=== PATIENT | female | born 1980 | race Caucasian/White ===

== ENCOUNTER 2021-03-20 01:53 | Outpatient (CLI) | payer BC, SELFPAY ==
--- NOTE | 2021-03-20 07:15 | DI.MAMMO_ITS ---
Exam(s) MAMMO SCREENING EXAM: MAMMO SCREENING CLINICAL HISTORY: screening,z12.39 TECHNIQUE: Mammograms were interpreted according to the usual protocol including computer analysis w [employer] CAD system, tomosynthesis and C-view imaging. COMPARISON: FINDINGS: The breasts are of moderate density with fairly symmetrical distribution of fibroglandular tissue. N o dominant mass or clumped microcalcification is identified in either breast. Today's examination is a baseline examination. IMPRESSION: No specific evidence of malignancy at this time. Routine screening examinations are suggested at yea rly intervals due to the family history of breast carcinoma. BI-RADS Category 1 - Negative Breast Density - Category B - Scattered areas of fibroglandular density
== END 2021-03-20 02:13 ==
PROVIDERS: PCP Nurse Practitioner Family; Visit Provider Nurse Practitioner Family
DX: Z12.31 Encounter for screening mammogram for malignant neoplasm of breast (principal); Z80.3 Family history of malignant neoplasm of breast
CPT/HCPCS: 77063; 77067

== ENCOUNTER 2021-03-20 03:29 | Outpatient (CLI) | payer BC, SELFPAY ==
[2021-03-20 09:30] LABS: Hemoglobin A1C 5.3 % (<5.7)
[2021-03-20 10:24] LABS: Anion Gap 10.5 mmol/L (3-11); BUN 13 mg/dL (7-18); CO2 27.5 mmol/L (21.0-32.0); CREATININE 0.6 mg/dL (0.55-1.02); Calcium 8.6 mg/dL (8.5-10.1); Calculated LDL 104 mg/dL (<100); Chloride 105 mmol/L (98-107); Cholesterol 160 mg/dL (<200); Glucose 88 mg/dL (74-106); HDL Cholesterol 45 mg/dL (40-60); Sodium 143 mmol/L (136-145); Triglyceride 59 mg/dL (<150)
== END 2021-03-20 03:30 | disposition home or self-care (01) ==
LOC: LBO 03:29
PROVIDERS: PCP Nurse Practitioner Family; Visit Provider Nurse Practitioner Family
DX: Z00.00 Encounter for general adult medical examination without abnormal findings (principal); Z13.220 Encounter for screening for lipoid disorders; Z13.1 Encounter for screening for diabetes mellitus
CPT/HCPCS: 36415; 80048; 80061; 83036

== ENCOUNTER 2021-10-27 16:42 | Outpatient (REF) | payer BC, SELFPAY ==
[2021-10-27 18:12] LABS: Bilirubin Negative (Negative); Blood Large (Negative); Clarity Clear (Clear); Glucose Negative (Negative); Ketones Negative (Negative); Leukocyte Esterase Small (Negative); Nitrite Negative (Negative); Specific Gravity 1.015 (1.005-1.025); Urobilinogen 0.2 EU/dL (Up TO 0.2)
[2021-10-27 18:25] LABS: Bacteria Few HPF (Negative); C & S Indicated? Yes; Crystals Negative HPF (Negative); Epithelial Cells Few HPF (Negative); Mucus Negative (Negative); Other Cells Mod Transitional (Negative); RBC 0-2 HPF (0-2); WBC >50 HPF (0-5)
== END 2021-10-27 16:43 | disposition home or self-care (01) ==
LOC: LBN 16:42
PROVIDERS: PCP Nurse Practitioner Family; Visit Provider Physician Assistant
DX: N39.0 Urinary tract infection, site not specified (principal)
CPT/HCPCS: 87077; 81003; 81015; 87086; 87186

== ENCOUNTER 2021-12-09 05:41 | Emergency (ER) | payer BC, SELFPAY ==
[2021-12-09 05:45] VITALS: BP 127/84; PULSE 90; RESP 16; TEMP 36.3; O2SAT 99
[2021-12-09 05:55] LABS: Bilirubin Small (Negative); Blood Large (Negative); Clarity Cloudy (Clear); Glucose 100 mg/dL (Negative); Ketones Negative (Negative); Leukocyte Esterase Moderate (Negative); Nitrite Negative (Negative); Specific Gravity >= 1.030 (1.005-1.025)
--- NOTE | 2021-12-09 05:59 | ED.GENADUL_ITS ---
Discharge Plan Disposition Patient Disposition: HOME Condition: Good Discharge Details Clinical Impression: UTI (urinary tract infection) Primary Care Provider: Jayne Cheema ED Provider: Devonte Casey Home Meds and New Rx's Prescriptions: New sulfamethoxazole-trimethoprim [Bactrim DS] 800-160 mg tablet 1 tab PO BID 4 Days Qty: 8 RF: 0 Continued levonorgestrel-ethinyl estrad [Kylie 28] 0.15-0.03 mg tablet 1 tab PO DAILY Qty: 84 RF: 4 Discharge Instructions Instructions: Urinary Tract Infection in Women (ED) Additional Instructions: At this time you do have evidence of urinary tract infection. Please perform the hygiene activities that we discussed to help prevent these in the future. Please take a cranberry juice concentrate supplement to help with the resolution of this, as well as the prescribed antibiotic as directed. If you notice any worsening of your symptoms, or any new symptoms such as vomit ing, diarrhea, fever, chills, shortness of breath, chest pain, numbness, weakness, or fainting , please return immediately to the emergency department for reevaluation. Please follow up with your primary care provider as soon as possible for reassessment and reevaluation. As always, it was a pleasure participating in your medical care today. Referrals: Jayne Cheema, OBSTETRICS GYNECOLOGY MD [Primary Care Provider] - Medical Decision Making This is a pleasant 41-year-old female with no significant past medical history who presents for symptoms of UTI. For the last 3 to 4 days she admits to urinary frequency, pressure-like sensation in the suprapubic region, he is irritation with urination. Patient did have a UTI about a month ago, which resolved on its own. She denies regular history of UTIs otherwise. She does admit to a few episodes of recent intercourse where she did not urinate afterwards. She denies any fever chills or flank pain. She denies any nausea vomiting or diarrhea. She denies any abdominal pain. No other complaints at this time. Physical exam demonstrates a well-appearing female, no flank or CVA tender ness,No suprapubic tenderness. No clinical evidence of appendicitis, pyelonephritis, or other significant concerning intra-abdominal or uterine pathology. Review of previous urine culture shows fajardo sensitivity. Bedside ultrasound shows no evidence of large bladder stone. I suspect the patient symptoms are likely secondary to her lack of micturition shortly after intercourse recently. Will give Bactrim again, recommend close follow-up with EP. Discussed red flags which to return. I have extensively reviewed the treatment plan and discharge instructions with the patient. I have addressed all patient concerns at this time. The patient was made aware of what symptoms to monitor for that would warrant a return to the emergency department. Discussed the plan with the patient, they demonstrate verbal understanding and agreement with our assessment and plan at this time. The documentation in this chart was dictated using [employer] dictation software. Please excuse any dictation errors. HPI General Date/Time Provider Initiated Documentation: 12/09/21 05:43 . HPI Narrative: Viral blount is a pleasant 41-year-old female with no significant past medical history who presents for symptoms of UTI. For the last 3 to 4 days she admits to urinary frequency, pressure-like sensation in the suprapubic region, he is irritation with urination. Patient did have a UTI about a month ago, which resolved on its own. She denies regular history of UTIs otherwise. She does admit to a few episodes of recent intercourse where she did not urinate afterwards. She denies any fever chills or flank pain. She denies any nausea vomiting or diarrhea. She denies any abdominal pain. No other complaints at this time. Related Data Home Medications Medication Instructions Recorded Confirmed levonorgestrel 0.15 mg-ethinyl 1 tab PO DAILY #84 tab 08/10/21 12/09/21 estradiol 0.03 mg tablet sulfamethoxazole-trimethoprim 1 tab PO BID 4 Days #8 tab 12/09/21 [Bactrim DS] Previous Rx's Medication Instructions Recorded levonorgestrel 0.15 mg-ethinyl 1 tab PO DAILY #84 tab 08/10/21 estradiol 0.03 mg tablet sulfamethoxazole-trimethoprim 1 tab PO BID 4 Days #8 tab 12/09/21 [Bactrim DS] Allergies Allergy/AdvReac Type Severity Reaction Status Date / Time house dust mite Allergy Unknown Unverified 12/09/21 05:52 mold Allergy Unknown Unverified 12/09/21 05:52 Penicillins Allergy Unknown Unverified 12/09/21 05:52 beech pollen Allergy Unknown Uncoded 12/09/21 05:52 birch pollen Allergy Unknown Uncoded 12/09/21 05:52 oak pollen Allergy Unknown Uncoded 12/09/21 05:52 General Stated Complaint: Urinary JUANA: 4 Review of Systems All systems reviewed & are unremarkable except as noted in HPI and below PFSH All Active Problems UTI (urinary tract infection) (Acute) Oral contraceptive pill surveillance (Chronic) Surgical History S/P cholecystectomy S/P tonsillectomy Family History Mother Hypertension Father Type 2 diabetes mellitus Sister Hypertension Depression Son No problems noted. Daughter No problems noted. Maternal Grandfather Heart disease Maternal Grandmother No problems noted. Paternal Grandfather Type 2 diabetes mellitus Paternal Grandmother Breast cancer 60s Colon cancer 60s Social History Smoking/Tobacco Use Status: Never Second Hand Exposure: No Smoking risk assessment performed?: Yes Alcohol Intake: current Alcohol Intake frequency: a few times a month Alcohol type: wine Drug use: Never Caregiver/Support person: No Household members: spouse and children Housing: house Do you need help understanding health information?: Never Pets and animals: Yes (RABBIT) Sexually active: Yes Do you think of yourself as: straight/heterosexual Current gender identity: female What is your relationship status?: How often do you talk on the phone with friends or family?: three or more times per week How often do you get together with friends or relatives?: once per week Do you belong to any clubs or organized social groups?: no Panel score (0-1 are the most socially isolated patients): 2 What type of physical activity do you participate in: walking Duration: 30-45 minutes/day Frequency: 3-4 times per week Seatbelt use: always Helmet use: Yes Helmet use: always Drive intox or ride w/intox tilt tray driver: No Do you feel safe at home: Yes Do you feel safe in your relationship?: Yes History History 3 Para 2 Hx # Term Pregnancies Multiple births Hx # Pregnancies Ectopic pregnancies AB induced Hx Number of Living Children 2 AB spontaneous 1 Exam Narrative Exam Narrative: 1.Const: Well-nourished, Well-developed, appearing stated age 2.Eyes: PERRL, no conjunctival injection, and symmetrical lids. 3.ENT: Atraumatic external nose and ears. Moist MM. Neck: Symmetric, trachea midline, No thyromegaly. 4.CVS: +S1/S2, No murmurs or gallops. Peripheral pulses 2+ and equal in all extremities. Brisk capillary refill in all extremities. 5.RESP: Unlabored respiratory effort. Clear to auscultation bilaterally. No wheezes rales or rhonchi 6.GI: Soft, Nontender/Nondistended, No hepatosplenomegaly. No guarding or rebound. No flank or CVA tenderness. No suprapubic tenderness. Bedside ultrasound shows no evidence of large bladder stone. 7.MSK: Normocephalic/Atraumatic, Extremities w/o deformity or ttp No cyanosis or clubbing, Normal movement of all extremities 8.Skin: Warm, Dry. No rashes or lesions. 9.Neuro: brush cleaner II-XII grossly intact. Sensation grossly intact, no focal neurologic deficits. 10.Psych: (AAO) x3. Appropriate mood and affect Course Vital Signs Vital signs: Vital Signs Temperature 36.3 C L 12/09/21 05:45 Pulse 90 12/09/21 05:45 Respiratory Rate 16 12/09/21 05:45 Blood Pressure 127/84 12/09/21 05:45 Pulse Oximetry 99 12/09/21 05:45 Temperature 36.3 C L 12/09/21 05:45 Temperature Source Temporal Artery Scan 12/09/21 05:45 Pulse 90 12/09/21 05:45 Respiratory Rate 16 12/09/21 05:45 Respiratory Effort Non-Labored 12/09/21 05:53 Blood Pressure 127/84 12/09/21 05:45 Pulse Oximetry 99 12/09/21 05:45 Pain Level 0 12/09/21 05:53 Lab/Test Results Lab/Test Results: Laboratory Tests Range/Units 12/09/21 05:45 Urine Color (Yellow) Yellow Urine Clarity (Clear) Cloudy Urine pH (5-8) 6.0 Ur Specific [place] (1.005-1.025) >= 1.030 H Urine Protein (Negative) mg/dL 100 H Urine Ketones (Negative) mg/dL Negative Urine Blood (Negative) Large H Urine Nitrite (Negative) Negative Urine Bilirubin (Negative) Small H Urine Urobilinogen (Up TO 0.2) EU/dL 1.0 H Ur Leukocyte Esterase (Negative) Moderate H Urine RBC Cancelled Urine WBC Cancelled Ur Epithelial Cells Cancelled Urine Crystals Cancelled Urine Bacteria Cancelled Urine Casts Cancelled Urine Mucus Cancelled Urine Other Cancelled Ur Culture Indicated? Cancelled Urine Glucose (Negative) mg/dL 100
[2021-12-09] MEDS: Sulfameth/Trimeth DS, 2 TABS/BTL 1 TAB PO (06:06)
== END 2021-12-09 06:10 | disposition home or self-care (01) ==
PROVIDERS: Emergency Provider Student in an Organized Health Care Education/Training Program; PCP Nurse Practitioner Family
DX: N39.0 Urinary tract infection, site not specified (principal)
CPT/HCPCS: 99283; 81003; 81015

== ENCOUNTER 2022-11-13 10:42 | Outpatient (REF) | payer OTHER, SELFPAY ==
--- NOTE | 2022-11-13 08:30 | PAPFT_PTH ---
PATIENT: Jana Hill LOC: [facility] U#:[id number] AGE/SX: 42/F ROOM: RE11/13/[address]: MARICHUY Padron : 1980 BED: DIS: 11/13/2022 SPEC #: [id number] RECD: 11/13/22 12:58 STATUS: LOLLY RERigoberto #: [id number] NISREEN: 11/13/22 08:[address]: Jayne Cheema DEPT: [facility] Cytology RECD BY: Magdalena Tilley Tissues: 1 - CX/ENDOCX FOR PAP SMEARS Procedures: PAP THIN PREP/UVM Screening HPV DNA PROBE Comments: [id number]
== END 2022-11-13 10:43 | disposition home or self-care (01) ==
LOC: LBN 10:42
PROVIDERS: PCP Nurse Practitioner Family; Visit Provider Nurse Practitioner Family
DX: Z12.4 Encounter for screening for malignant neoplasm of cervix (principal); Z11.51 Encounter for screening for human papillomavirus (HPV)
CPT/HCPCS: 88142; 87624

== ENCOUNTER 2023-02-10 01:16 | Outpatient (CLI) | payer OTHER, SELFPAY ==
--- NOTE | 2023-02-10 06:45 | DI.MAMMO_ITS ---
Exam(s) MAMMO SCREENING EXAM: MAMMO SCREENING CLINICAL HISTORY: screening,z12.39. TECHNIQUE: Bilateral full field digital CC and MLO mammographic images were obtained with 3D tomosyn thesis and utilizing computer aided detection (CAD). COMPARISON: Prior baseline mammogram of March 2021 was reviewed. FINDINGS: There are no new left breast findings. In the right breast there is an asymmetric density-possible nodule measuring 11 x 8 mm, located appro ximately 8 cm in from the nipple on the MLO view and 9 cm in from the nipple on the CC view. Further imaging of this finding recommended. There are no malignant-appearing microcalcification groups is region or elsewhere in either breast There is no significant architectural distortion nor skin thickening-retraction. IMPRESSION: No radiographic evidence of malignancy in the left breast.. Asymmetric density-possible nodule right breast measuring 11 x 8 mm. Spot compression view and ultra sound recommended. BI-RADS Category 0 - Assessment Incomplete: Need additional imaging evaluation Breast Density - Category B - Scattered areas of fibroglandular density Breast density Category C or D implies that the patient has dense breast tissue. Dense breast tissue can make it harder to find cancer on a mammogram. Dense breast tissue is also associated with an incr eased risk of breast cancer. This information about the result of the mammogram report was provided to the patient to raise their awareness. Use this report when you speak with the patient about their risks for breast cancer, which includes their family history. At that time, you may recommend additional screening tests (Ultrasoun d or MRI) as these tests may add significant information. A negative radiographic report should not delay biopsy if a dominant or clinically suspicious mass is present. Up to ten percent of cancers are not identified on mammography. A negative report may reinforce clinical impression. Adenosis and dense breasts may obscure an underlying neoplasm. False positive reports average 6 to 10%. Patient will receive a letter notifying them of these results.
== END 2023-02-10 01:36 ==
LOC: DI 01:16
PROVIDERS: PCP Nurse Practitioner Family; Visit Provider Nurse Practitioner Family
DX: Z12.31 Encounter for screening mammogram for malignant neoplasm of breast (principal); R92.8 Other abnormal and inconclusive findings on diagnostic imaging of breast
CPT/HCPCS: 77063; 77067

== ENCOUNTER 2023-02-13 02:07 | Outpatient (CLI) | payer OTHER, SELFPAY ==
--- NOTE | 2023-02-13 | DI.US_ITS ---
Exam(s) MG MAMMO SCREEN CALL BACK UNI US BREAST RT COMPLETE EXAM: MG MAMMO SCREEN CALL BACK UNI -RIGHT AND COMPLETE RIGHT BREAST ULTRASOUND CLINICAL HISTORY: f/u mammo, asymmetric density, ? nodule rt breast. TECHNIQUE: Unilateral RIGHT BREAST spot mammographic images obtained with 3D tomosynthesisand utiliz ing computer aided detection (CAD). . Complete RIGHT breast Ultrasound was also performed, including all 4 quadrants, the retroareolar cait on, and the ipsilateral axilla. COMPARISON: Prior mammograms were reviewed. This additional imaging was performed due to findings described on the recent screening mammogram of 02/10/2022. FINDINGS: DIAGNOSTIC MAMMOGRAM: Additional mammographic views performed today does not dissipate this finding in the right breast.We proceeded with ultrasound. COMPLETE RIGHT BREAST ULTRASOUND: Ultrasound performed today reveals no evidence of solid or significant cystic lesions in all 4 quadra nts. There are no focal ultrasound findings correspond to the asymmetric density seen on the mammogr am.. Scanning of the ipsilateral right axilla reveals no significant adenopathy. IMPRESSION: 1. Right breast asymmetric density with no corresponding ultrasound finding. 2. This is most probably a benign finding of asymmetric tissue, given that it has not changed from t he baseline screening mammogram of March 2021, almost 2 years. Appropriate follow-up as discussed by myself with the patient today is repeat right breast mammogram in 6 months. This should be documented as stable for a total of 3 years on a Q 6 months basis. The patient was informed of these findings and recommendations by myself prior to leaving the departm ent today. BI-RADS Category 3 - 6 month - Probably Benign Finding: Recommend follow-up mammography in 6 months Breast Density - Category B - Scattered areas of fibroglandular density Breast density Category C or D implies that the patient has dense breast tissue. Dense breast tissue can make it harder to find cancer on a mammogram. Dense breast tissue is also associated with an incr eased risk of breast cancer. This information about the result of the mammogram report was provided to the patient to raise their awareness. Use this report when you speak with the patient about their risks for breast cancer, which includes their family history. At that time, you may recommend additional screening tests (Ultrasoun d or MRI) as these tests may add significant information. A negative radiographic report should not delay biopsy if a dominant or clinically suspicious mass is present. Up to ten percent of cancers are not identified on mammography. A negative report may reinforce clinical impression. Adenosis and dense breasts may obscure an underlying neoplasm. False positive reports average 6 to 10%. Patient will receive a letter notifying them of these results.
== END 2023-02-13 02:27 ==
LOC: DI 02:08
PROVIDERS: PCP Nurse Practitioner Family; Visit Provider Nurse Practitioner Family
DX: Z12.31 Encounter for screening mammogram for malignant neoplasm of breast (principal); R92.8 Other abnormal and inconclusive findings on diagnostic imaging of breast; N64.59 Other signs and symptoms in breast
CPT/HCPCS: 76642; 77063; 77067

== ENCOUNTER → 2023-09-10 01:20 | Outpatient (CLI) | payer OTHER, SELFPAY ==
--- NOTE | 2023-09-10 08:00 | DI.MAMMO_ITS ---
Exam(s) MG MAMMO DIAGNOSTIC UNI EXAM: MG MAMMO DIAGNOSTIC UNI CLINICAL HISTORY: 6 month follow up,R92.8. TECHNIQUE: Craniocaudal and mediolateral oblique Full Field Digital Mammography views of the right breast with Computer Aided Diagnosis followed by Tomosynthesis. COMPARISON: MG MG MAMMO SCREENING from 03/20/2021 MG MG MAMMO SCREENING from 02/10/2023 MG MG MAMMO SCREEN CALL BACK UNI from 02/13/2023 US US BREAST RT COMPLETE from 02/13/2023 FINDINGS: Mammography/Tomosynthesis: Masses/Architectural Distortion: None seen. Stable appearance of island of asymmetric tissue in the posterior upper outer quadrant. Microcalcifictions: No suspicious pleomorphic-type are seen. Skin Thickening/Nipple Retraction: None. IMPRESSION: 1. No evidence of malignancy is noted. 2. Unless there is more urgent need, follow-up screening mammography is recommended,, due in 6 months . BI-RADS Category 2 - Benign Findings Breast Density - Category B - Scattered areas of fibroglandular density A negative radiographic report should not delay biopsy if a dominant or clinically suspicious mass is present. Up to ten percent of cancers are not identified on mammography. A negative report may reinforce clinical impression. Adenosis and dense breasts may obscure an underlying neoplasm. False positive reports average 6 to 10%. Patient will receive a letter notifying them of these results.
== END ==
PROVIDERS: PCP Nurse Practitioner Family; Visit Provider Nurse Practitioner Family
DX: R92.8 Other abnormal and inconclusive findings on diagnostic imaging of breast (principal); R92.323 Mammographic fibroglandular density, bilateral breasts
CPT/HCPCS: 77061; 77065; G0279

== ENCOUNTER 2025-01-10 02:15 | Outpatient (CLI) | payer OTHER, SELFPAY ==
[2025-01-10 07:48] LABS: HGB 13.5 g/dL (11.2-15.7); MCH 29.5 pg (27.0-33.0); MCHC 32.9 % (32.0-36.0); MCV 90 fL (80-95); MPV 9.8 fL (8.0-11.0); Platelet Count 281 10^3/uL (130-400); RBC 4.58 10^6/uL (3.93-5.22); RDW 12.7 % (11.7-14.6); RDW-SD 41.7 fL; WBC 7.56 10^3/uL (4.4-10.8)
[2025-01-10 08:42] LABS: ALT 17 U/L (14-59); AST 12 U/L (15-37); Albumin 3.5 g/dL (3.4-5.0); Alkaline Phosphatase 51 U/L (46-116); BUN 12 mg/dL (7-18); CREATININE 0.5 mg/dL (0.55-1.02); Calcium 8.6 mg/dL (8.5-10.1); Calculated LDL 100 mg/dL (<100); Chloride 108 mmol/L (98-107); Cholesterol 155 mg/dL (<200); Estimated GFR 119.27 (mL/min/1.73m2); Glucose 91 mg/dL (74-106); HDL Cholesterol 44 mg/dL (>or=50); Potassium 4.1 mmol/L (3.5-5.1); Sodium 145 mmol/L (136-145); Total Protein 7.1 g/dL (6.4-8.2); Triglyceride 59 mg/dL (<150)
[2025-01-10 08:46] LABS: Hemoglobin A1C 5.4 % (<5.7)
[2025-01-11 10:04] LABS: Hepatitis C Ab w Rflx HCV PCR Negative (Negative)
[2025-01-11 10:19] LABS: HBs Antibody, Quant <3.1 mIU/mL (See Note); Hep B Surface Ab Negative (See Note); Hepatitis B Core Antibody Negative (Negative); Hepatitis B Surface Antigen Negative (Negative)
[2025-01-11 10:56] LABS: HIV-1/2 Ag & Ab Screen Negative (Negative)
== END 2025-01-10 02:16 | disposition home or self-care (01) ==
PROVIDERS: PCP Nurse Practitioner Family; Visit Provider Nurse Practitioner Family
DX: Z11.59 Encounter for screening for other viral diseases (principal); Z00.00 Encounter for general adult medical examination without abnormal findings; Z11.4 Encounter for screening for human immunodeficiency virus [HIV]
CPT/HCPCS: 36415; 80053; 80061; 85027; 86704; 86706; 86803; 87340; 87389; 83036

== ENCOUNTER 2025-01-28 00:08 | Outpatient (CLI) | payer OTHER, SELFPAY ==
--- NOTE | 2025-01-28 | DI.US_ITS ---
Exam(s) MG MAMMO SCREEN CALL BACK UNI US BREAST LT COMPLETE EXAM: MG MAMMO SCREEN CALL BACK UNI CLINICAL HISTORY: 5 x 4 mm asymmetric density 3 cm from nipple on MLO view,LT. TECHNIQUE: Mediolateral oblique spot compression digital Mammography views of the leftbreast with T omosynthesis and left breast ultrasound. COMPARISON: MG MG MAMMO SCREENING from 03/20/2021 MG MG MAMMO SCREENING from 02/10/2023 US US BREAST RT COMPLETE from 02/13/2023 MG MG MAMMO SCREEN CALL BACK UNI from 02/13/2023 MG MG MAMMO DIAGNOSTIC UNI from 09/10/2023 MG MG MAMMO SCREENING from 01/10/2025 US US BREAST LT COMPLETE from 01/28/2025 FINDINGS: Mammography/Tomosynthesis: Masses: None seen. The nodule seen in the subareolar tissue of the left breast on the MLO view does not persist. Findings are consistent with overlying fibroglandular tissue. Architectural Distortion: None seen. Microcalcifictions: No suspicious pleomorphic-type are seen. Skin Thickening/Nipple Retraction: None. Left breast US: Echotexture: Normal appearance of the glandular tissue. Shadowing: No suspicious foci. Cyst: None. Solid lesions: None seen. Ductal dilation: None. IMPRESSION: 1. No evidence of malignancy is noted. 2. Unless there is more urgent need, follow-up screening mammography is recommended, as per [employer] guidelines. 3. The findings were discussed with the patient on the date of the examination. BI-RADS Category 1 - Negative Breast Density - Category B - Scattered areas of fibroglandular density A negative radiographic report should not delay biopsy if a dominant or clinically suspicious mass is present. Up to ten percent of cancers are not identified on mammography. A negative report may reinforce clinical impression. Adenosis and dense breasts may obscure an underlying neoplasm. False positive reports average 6 to 10%. Patient will receive a letter notifying them of these results.
== END 2025-01-28 00:28 ==
LOC: DI 00:08
PROVIDERS: PCP Nurse Practitioner Family; Visit Provider Nurse Practitioner Family
DX: Z12.31 Encounter for screening mammogram for malignant neoplasm of breast (principal); D24.2 Benign neoplasm of left breast; R92.323 Mammographic fibroglandular density, bilateral breasts
CPT/HCPCS: 76642; 77063; 77067

== ENCOUNTER 2025-08-30 18:33 | Outpatient (REF) | payer OTHER, SELFPAY ==
[2025-08-30 21:05] LABS: Glucose Negative (Negative)
[2025-08-30 21:14] LABS: C & S Indicated? No
== END 2025-08-30 18:34 | disposition home or self-care (01) ==
LOC: LBN 18:33
PROVIDERS: PCP Nurse Practitioner Family; Visit Provider Nurse Practitioner Family
DX: R39.9 Unspecified symptoms and signs involving the genitourinary system (principal)
CPT/HCPCS: 81003; 81015